=== PATIENT | female | born 1945 | race Caucasian/White ===

== ENCOUNTER 2022-07-25 13:13 | Emergency (ER) | payer MEDICARE ==
[~2022-07-25] VITALS: Ht 162.6 cm; Wt 107.5 kg
[2022-07-25] MEDS ORDERED: LEVOFLOXACIN250 MG PO (15:37)
[2022-07-25] MEDS ORDERED: LEVOFLOXACIN 250 MG TAB ONE (15:40)
[2022-07-25] MEDS ORDERED: LEVOFLOXACIN 500 MG TAB PO ONE (15:45)
== END 2022-07-25 15:47 | disposition home or self-care (01) ==
LOC: ER 13:15
DX: R50.9 Fever, unspecified (principal); I10 Essential (primary) hypertension; E11.9 Type 2 diabetes mellitus without complications; E78.5 Hyperlipidemia, unspecified; I50.9 Heart failure, unspecified; Z20.822 Contact with and (suspected) exposure to COVID-19; G47.30 Sleep apnea, unspecified
CPT/HCPCS: 71046; 99283; U0002

== ENCOUNTER 2023-07-27 09:28 | Outpatient (RCR) | payer MEDICARE ==
[~2023-07-27 09:28] MED LIST: LEVOFLOXACIN250 MG PO
== END 2023-08-01 ==
LOC: PT 09:28
PROVIDERS: ATTEND Specialist
DX: M17.11 Unilateral primary osteoarthritis, right knee (principal); R53.81 Other malaise; M62.81 Muscle weakness (generalized); M25.561 Pain in right knee; M25.661 Stiffness of right knee, not elsewhere classified; R26.2 Difficulty in walking, not elsewhere classified

== ENCOUNTER 2023-09-04 10:05 | Outpatient (RCR) | payer MEDICARE | END 2023-10-01 | LOC: PT 10:05 | PROVIDERS: ATTEND Specialist | DX: M17.11 Unilateral primary osteoarthritis, right knee (principal) ==